=== PATIENT | female | born 1960 | race Caucasian/White ===

== ENCOUNTER 2024-01-27 11:19 | Emergency (ER) | payer BC, SELFPAY ==
--- NOTE | ~2024-01-27 | XR_ITS ---
XR ankle RT min 3V DATE: 01/27/2024 12:26 INDICATION: Fall. Pain at dorsal ankle and foot, first toe TECHNIQUE: 4 views COMPARISON: None FINDINGS: There is suggestion of a recent dorsal cortical avulsion fracture of the proximal navicular bone. There is suggestion of likely old dorsal cortical avulsion fracture of the anterior process of the talus. Plantar and posterior calcaneal discopathy. No other fracture or dislocation of the ankle or disruption of the ankle mortise is evident. IMPRESSION: Suspected recent dorsal cortical avulsion fracture of the navicular bone Probable old dorsal cortical avulsion fracture of the anterior process of the talus Plantar and posterior calcaneal enthesopathy Reviewed, dictated and finalized at location A. IMPRESSION: Suspected recent dorsal cortical avulsion fracture of the navicular bone Probable old dorsal cortical avulsion fracture of the anterior process of the t alus Plantar and posterior calcaneal enthesopathy
--- NOTE | ~2024-01-27 | XR_ITS ---
XR foot RT min 3V DATE: 01/27/2024 12:26 INDICATION: Fall. History of avulsion fracture. Pain at the dorsal aspect of the ankle and foot TECHNIQUE: 4 views COMPARISON: None FINDINGS: Probable chronic cortical avulsion fracture of the dorsal aspect of the anterior process of the talus. Suggestion of a recent dorsal cortical avulsion fracture of the proximal navicular bone. There is severe osteoarthritic change at the first metatarsophalangeal joint. Plantar and posterior calcaneal enthesopathy. IMPRESSION: Probable recent cortical avulsion fracture of the dorsal aspect of the navicular Probable old dorsal cortical avulsion fracture of the anterior process of talus Severe osteoarthritis of first metatarsophalangeal joint Plantar and posterior calcaneal enthesopathy Reviewed, dictated and finalized at location A.
[2024-01-27 11:24] VITALS: BP 164/85; PULSE 74; RESP 18; TEMP 36.4; O2SAT 97
--- NOTE | 2024-01-27 12:12 | ED.FALL ---
HPI - Fall General Chief Complaint: Fall Stated Complaint: Fall, Right Foot Injury Time Seen by Provider: 01/27/24 11:26 Source: patient Mode of arrival: ambulatory Limitations: no limitations History of Present Illness HPI Narrative: This is a 63-year-old female who presents to the ED with chief complaint of right foot pain after fall down 2 steps yesterday. Reports a lot of swelling to the right ankle. She has old injuries of the right forefoot that seem to be exacerbated and new injury to the right mid foot/ankle. She thinks she felt a pop. Denies numbness, weakness or any further sites of pain or injury. Related Data Allergies Allergy/AdvReac Type Severity Reaction Status Date / Time codeine Allergy Verified 03/20/11 22:12 ibuprofen AdvReac Unknown PT AVOIDS Verified 02/25/13 08:29 IBUPROFEN SECONDARY HX WITH BLEEDING PROBLEMS Review of Systems Review of Systems: All systems as dictated in HPI Exam Narrative: GENERAL: Well-appearing, well-nourished, and in no acute distress. HEAD: Normocephalic, atraumatic. EYES: PERRLA and EOMI. ENT: Nares clear, no rhinorrhea or epistaxis. Mucous membranes moist. Oropharynx without tonsillar hypertrophy exudate or other lesions. NECK: Supple. No adenopathy or masses. CHEST: No respiratory distress. Clear to auscultation. No wheezes rales or rhonchi HEART: Regular rate and rhythm. No murmur heard. Normal peripheral pulses. ABDOMEN: Soft, nontender, nondistended, normal active bowel sounds. MSK: Moderate tenderness to the dorsum of the right foot. No bruising. No deformity. Neurovascular intact distally. Normal cap refill. SKIN: Warm, dry, no rash. NEURO: Alert and oriented x3. No focal deficits. PSYCH: Normal mood and affect. Course Vital Signs Vital signs: Vital Signs Temperature 97.5 F L 01/27/24 11:24 Pulse Rate 74 01/27/24 11:24 Respiratory Rate 18 01/27/24 11:24 Blood Pressure 164/85 H 01/27/24 11:24 Pulse Oximetry 97 01/27/24 11:24 Oxygen Delivery Room Air 01/27/24 11:24 Temperature 97.5 F L 01/27/24 11:24 Pulse Rate 74 01/27/24 11:24 Respiratory Rate 18 01/27/24 11:24 Blood Pressure 164/85 H 01/27/24 11:24 Pulse Oximetry 97 01/27/24 11:24 Oxygen Delivery Room Air 01/27/24 11:24 MDM - Fall MDM Narrative Medical decision making narrative: This is a 63-year-old female who presents to the ED with chief complaint of right ankle injury that occurred last night. Vitals are normal. Exam shows mild swelling and tenderness throughout the dorsum of the foot and right ankle. X-rays of the right foot and ankle: IMPRESSION: Suspected recent dorsal cortical avulsion fracture of the navicular bone Probable old dorsal cortical avulsion fracture of the anterior process of the talus Plantar and posterior calcaneal enthesopathy?. Overall symptoms are consistent with right ankle sprain. She was given Aamir wrap. She has walking boot home and follow-up with Foot doctor established. Pt will be discharged in stable condition. Return precautions given and supportive measures discussed. Pt is understanding and agreeable with plan for discharge and follow-up with PCP. Discharge Plan Discharge Clinical Impression: Right ankle sprain Patient Disposition: Home, Self-Care Condition: Stable Instructions: Antibiotic Form Additional Instructions: Your exam and imaging today show occlusion fracture, consistent with ankle sprain. Please follow-up with your foot doctor closely on this. Likely will heal on its own or with physical therapy. Continue with Motrin 600 mg every 6-8 hours for pain control. You could also take Tylenol 500 mg with this. If you have any new or worsening symptoms please return to the ER for further evaluation. Follow-up/Referrals: Edinson Grissom MD [Physician] - Time of Disposition: 12:57
[2024-01-27] MEDS: IBUPROFEN 400 MG TABLET 800 MG PO (12:16)
== END 2024-01-27 13:34 | disposition home or self-care (01) ==
PROVIDERS: Emergency Provider Physician Assistant; PCP Internal Medicine
DX: S93.401A Sprain of unspecified ligament of right ankle, initial encounter (principal); S96.911A Strain of unspecified muscle and tendon at ankle and foot level, right foot, initial encounter; M19.071 Primary osteoarthritis, right ankle and foot; M77.31 Calcaneal spur, right foot; W10.9XXA Fall (on) (from) unspecified stairs and steps, initial encounter
CPT/HCPCS: 73610; 73630; 99283; A9270